=== PATIENT | male | born 1980 | race Caucasian/White ===

== ENCOUNTER 2020-06-08 18:48 | Emergency (ER) | payer BC ==
[2020-06-08] MEDS ORDERED: Diphtheria,Pertussis(Acell),Tetanus Vaccine 0.5 ML Syringe IM ONE (19:24)
[2020-06-08] MEDS ORDERED: Silver Sulfadiazine 1% Crm 400 GM Jar TOP ONE (19:25)
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
== END 2020-06-08 20:05 | disposition home or self-care (01) ==
LOC: SUPCPDRO 18:48 → JD.ED 18:48
DX: T20.27XA Burn of second degree of neck, initial encounter (principal); T20.212A Burn of second degree of left ear [any part, except ear drum], initial encounter; T22.10XA Burn of first degree of shoulder and upper limb, except wrist and hand, unspecified site, initial encounter; Z23 Encounter for immunization; Z88.1 Allergy status to other antibiotic agents; X08.8XXA Exposure to other specified smoke, fire and flames, initial encounter; Y92.89 Other specified places as the place of occurrence of the external cause; Y99.0 Civilian activity done for income or pay
CPT/HCPCS: 16020; 90471; 90715; 99283; A9270; 99282

== ENCOUNTER 2021-02-18 17:05 | Emergency (ER) | payer BC ==
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
== END 2021-02-18 19:32 | disposition home or self-care (01) ==
LOC: JD.ED 17:05
DX: S09.21XA Traumatic rupture of right ear drum, initial encounter (principal); Z88.1 Allergy status to other antibiotic agents; Z79.899 Other long term (current) drug therapy; X58.XXXA Exposure to other specified factors, initial encounter
CPT/HCPCS: 99282; 99283

== ENCOUNTER 2021-02-22 17:41 | Emergency (ER) | payer BC ==
--- NOTE | 2021-02-22 18:12 | EDM.PDOC ---
ED HPI GENERAL MEDICAL PROBLEM - General Chief Complaint: ENT Problem Stated Complaint: EAR PAIN Time Seen by Provider: 02/22/21 18:06 Source of Information: Reports: Patient History Limitations: Reports: No Limitations - History of Present Illness INITIAL COMMENTS - FREE TEXT/NARRATIVE: 40-year-old male presents to the ED for evaluation of inability to equilibrate the pressure in his right ear. 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 He did have his earplugs and at that time in a hot piece of slag fell directly into his right ear up against his eardrum on February 13. Examination 2 days ago revealed martinez with hyperemia to the center of the eardrum and 2 areas at 9:00 and 3:00 adjacent to the middle of the eardrum that looked like superficial martinez with serous drainage behind them. I could not tell if there was a true perforation of the eardrum. I placed the patient on Ciprodex optic drops 2 drops to the right ear twice daily. He was advised to make an appointment with either Dr. Layne or Dr. Murray ear nose and throat surgeon in [place] for follow-up. Today he feels that he cannot equilibrate the pressure in his ear and the muffled pressure in his ear is driving him crazy. He states the ear is not that painful anymore. Onset: Gradual Onset Date: 02/13/21 (Right ear has become progressively more muffled for the last 9 days.) Duration: Day(s):, Getting Worse Location: Reports: Face, Other (Right ear has muffled hearing and unable to equilibrate the pressure in his eustachian tube.) Quality: Reports: Ache (Right ear discomfort), Pressure, Other Severity: Moderate (Fullness feeling in his right ear without a "ability to equilibrate the pressure in the eustachian tube.) Improves with: Reports: None Worsens with: Reports: Other Context: Denies: Activity (Up and down hills when he is driving makes it worse.), Exercise, Lifting, Sick Contact, Trauma, Other Associated Symptoms: Reports: No Other Symptoms Treatments 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: Reports: Other (see below) (None.) Right Ear Pain Score (Numeric/FACES): 2 - Related Data Allergies Allergy/AdvReac Type Severity Reaction Status Date / Time bacitracin Allergy Severe Rash Verified 02/22/21 18:09 Home Meds: Home Meds Cholecalciferol (Vitamin D3) [Vitamin D3] 5,000 unit PO DAILY 02/18/21 [History] Ciprofloxacin HCl/Dexameth [Ciproflox-Dexameth Otic Susp] 7.5 ml OT BID #1 bottle 02/18/21 [Rx] Fexofenadine [Sarah] 30 mg PO DAILY 02/18/21 [History] Meloxicam 15 mg PO DAILY 02/18/21 [History] [place]-3/DHA/Epa/Fish Oil [[place] 3 500 Softgel] 1 each PO DAILY 02/18/21 [History] Cefdinir [Omnicef] 300 mg PO BID #16 cap 02/22/21 [Rx] Loratadine/Pseudoephedrine [Claritin-D 24 Hour Tablet] 1 each PO DAILY #5 tab.er.24h 02/22/21 [Rx] Past Medical History Musculoskeletal History: Reports: Back Pain, Chronic Other Musculoskeletal History: low back surgery - Past Surgical History Neurological Surgical History: Reports: Lumbar Spine Social & Family History - Caffeine Use Caffeine Use: Reports: Coffee - Living Situation & Occupation Living situation: Reports: Occupation: Employed ED ROS ENT - Review of Systems Review Of Systems: See Below Constitutional: Denies: Fever, Chills, Malaise, Weakness, Fatigue, Decreased Appetite, Weight Loss HEENT: Reports: Hearing Loss (Pulled hearing right ear), Rhinitis, Sinus Problem Respiratory: Reports: No Symptoms Cardiovascular: Reports: No Symptoms Endocrine: Reports: No Symptoms GI/Abdominal: Reports: No Symptoms : Reports: No Symptoms Musculoskeletal: Reports: No Symptoms Skin: Reports: No Symptoms, Other Psychiatric: Reports: No Symptoms Hematologic/Lymphatic: Reports: No Symptoms ED EXAM, ENT - Physical Exam Exam: See Below Exam Limited By: No Limitations General Appearance: Alert, WD/WN, No Apparent Distress, Other (Temperature is 36.5 degrees with heart rate of 76 and sinus respiratory is 18 with O2 sats of 97% room air BP is 141/88) Ears: Other (Lamination of the right eardrum shows that the previous hyperemia that I recognized in the middle of the eardrum is now an inflamed red area that looks like it wants to start bleeding. The area is adjacent to the middle of the tympanic membrane revea more of a serous fluid almost vesicle formation ) Nose: Nasal Swelling (His nasal turbinates the particular superior middle turbinates are almost kissing in the midline and he has evidence of chronic allergic rhinitis. This is partially why he is not able to equilibrate his eustachian tubes.) Mouth/Throat: Normal Inspection, Normal Gums, Normal Lips, Normal Oropharynx, Normal Teeth Course - Vital Signs Last Recorded V/S: Last Vital Signs Temp 36.5 C 02/22/21 18:04 Pulse 76 02/22/21 18:04 Resp 18 02/22/21 18:04 BP 141/88 H 02/22/21 18:04 Pulse Ox 97 02/22/21 18:04 - Radiology Interpretation Free Text/Narrative:: 40-year-old male presents to the ED primarily because of muffled hearing in his right ear and inability to do equilibrate the eustachian tube pressure in the middle ear cavity. 9 days ago he got hot slag in his right ear from welding. Landed directly on his tympanic membrane and made him very vertiginous for period of time. I seen him a few days ago and recognized martinez to the tympanic membrane with some vesicles at the 9:00 and 3:00 positions and burn primarily to the middle of the tympanic membrane with marked hyperemia. I cannot visualize through the tympanic membrane into the middle ear cavity. I placed him on Ciprodex optic drops 2 drops to the right ear twice daily. He states the muffled ear and inability to equilibrate the pressure is driving him crazy. On examination today he has more of a redness scab formation in the middle of the tympanic membrane that looks like it is getting ready to bleed. The lesions adjacent to the middle eardrum at 3:00 to 9:00 show more vesicle formation and possible pustular formation. I still cannot see into the middle ear cavity. His nose reveals marked swelling of the middle and superior turbinates bilaterally with a nearly kissing each side. This is highly responsible for his inability to equilibrate ear pressure. Plan I am going to place him on Claritin-D 24-hour release once daily for 5 days. Advised to lemon picker some Nasacort or Flonase nasal spray and use 2 squirts to each side of the nose once daily at bedtime. I also placed him on antibiotic Omnicef 300 mg twice daily for the next 8 days to clear up any middle ear infection that I cannot vis ualize. He has an appointment to see ear nose and throat surgeon Dr. Layne in clinic next week on February 26. Departure - Departure Time of Disposition: 18:07 Disposition: Home, Self-Care 01 Condition: Fair Clinical Impression: Eustachian tube dysfunction Qualifiers: Laterality: right Qualified Code(s): H69.81 - Other specified disorders of Eustachian tube, right ear - Discharge Information *PRESCRIPTION DRUG MONITORING PROGRAM REVIEWED*: Not Applicable *COPY OF PRESCRIPTION DRUG MONITORING REPORT IN PATIENT MARLEE: Not Applicable Prescriptions: Loratadine/Pseudoephedrine [Claritin-D 24 Hour Tablet] 1 each PO DAILY #5 tab.er.24h Cefdinir [Omnicef] 300 mg PO BID #16 cap Instructions: Eustachian Tube Dysfunction Referrals: Mayuri Díaz PA-C [Primary Care Provider] - Forms: ED Department Discharge Additional Instructions: Evaluation in the emergency room today in regards to injury to your right tympanic membrane or eardrum that occurred from hot piece of his slag that got into your ear 9 days ago. It caused martinez to the eardrum. Overall the eardrum does look slightly better than it did when I seen it a few days ago. There appears to be blisterlike formation on the eardrum at the 3 o'clock position. There is more of a red scab that looks like it is ready to bleed in the middle of the eardrum. The fact that she cannot equilibrate the pressure in the middle ear cavity is partially due to significant inflammation of your nose lining which is not along the eustachian tube that drains your middle ear to open appropriately. Treatment is Claritin-D 24-hour release 1 tablet once daily for the next 5 days. We usually take this first thing in the morning. I am going to place you an antibiotic Omnicef 300 mg twice daily for 8 days to clear up any infection that may be going on in the middle ear cavity since I cannot visualize it due to the thickening of your eardrum due to inflammation at this time. Continue the eardrops that we prescribed earlier this week. The other thing that you could try is picking up some Flonase nasal spray or Nasacort nasal spray which is now [id number]. 1 squirt each side of your nose at bedtime and repeat 3 minutes later 1 squirt each side will help open up your nose and help the eustachian tube drain after for 5 days of use. Follow-up with Dr. Jack and ear nose and throat surgeon in [place] next week as planned. Sepsis Event Note (ED) - Focused Exam Vital Signs: Vital Signs Temp Pulse Resp BP Pulse Ox 02/22/21 18:04 36.5 C 76 18 141/88 H 97
== END 2021-02-22 18:25 | disposition home or self-care (01) ==
LOC: JD.ED 17:41
DX: H69.81 Other specified disorders of Eustachian tube, right ear (principal); Z88.1 Allergy status to other antibiotic agents
CPT/HCPCS: 99282; 99283

== ENCOUNTER 2021-04-13 09:27 | Emergency (ER) | payer BC ==
[2021-04-13] MEDS ORDERED: Fluorescein 1 MG Ophth Strip EYEBOTH ONE (10:28)
[2021-04-13] MEDS ORDERED: Proparacaine 0.5% Ophth Soln 15 ML Bottle EYEBOTH ONE (10:30)
--- NOTE | 2021-04-13 11:39 | EDM.PDOC ---
ED HPI GENERAL MEDICAL PROBLEM - General Chief Complaint: Eye Problems Stated Complaint: EYE REDNESS Time Seen by Provider: 04/13/21 09:52 Source of Information: Reports: Patient History Limitations: Reports: No Limitations - History of Present Illness INITIAL COMMENTS - FREE TEXT/NARRATIVE: The patient presents with eye irritation. This has been going on since . He got some metal in his left eye and saw his supplier specialist. He removed the metal. He put a contact in and the contact went up into his eye. He returned and had the contact removed and some rust was removed. He was put on neomycin, polymycin B drops. The left eye has redness, swelling irritation, and now some drainage. Now the right eye is affected. It has erythema some lid edema and drainage. He has blurry vision to the left eye. He has no fever, chills, cough, chest pain, shortness of breath. Onset: Gradual Duration: Day(s): Location: Reports: Other (eyes) Quality: Reports: Other (irritation) Severity: Moderate Improves with: Reports: None Worsens with: Reports: None Associated Symptoms: Reports: No Other Symptoms Bilateral Eye Pain Score (Numeric/FACES): 8 - Related Data Allergies Allergy/AdvReac Type Severity Reaction Status Date / Time bacitracin Allergy Severe Rash Verified 04/13/21 09:51 Home Meds: Home Meds Cholecalciferol (Vitamin D3) [Vitamin D3] 5,000 unit PO DAILY 02/18/21 [History] Ciprofloxacin HCl/Dexameth [Ciproflox-Dexameth Otic Susp] 7.5 ml OT BID #1 bottle 02/18/21 [Rx] Fexofenadine [Sarah] 30 mg PO DAILY 02/18/21 [History] Meloxicam 15 mg PO DAILY 02/18/21 [History] Tropic-3/DHA/Epa/Fish Oil [Tropic 3 500 Softgel] 1 each PO DAILY 02/18/21 [History] Cefdinir [Omnicef] 300 mg PO BID #16 cap 02/22/21 [Rx] Loratadine/Pseudoephedrine [Claritin-D 24 Hour Tablet] 1 each PO DAILY #5 tab.er.24h 02/22/21 [Rx] Moxifloxacin HCl [Vigamox] 1 drop EYEBOTH Q4H #1 bottle 04/13/21 [Rx] Past Medical History - Past Health History Medical/Surgical History: Denies Medical/Surgical History Musculoskeletal History: Reports: Back Pain, Chronic Other Musculoskeletal History: low back surgery - Past Surgical History Neurological Surgical History: Reports: Lumbar Spine Social & Family History - Tobacco Use Tobacco Use Status *Q: Never Tobacco User - Caffeine Use Caffeine Use: Reports: Coffee - Recreational Drug Use Recreational Drug Use: No - Living Situation & Occupation Living situation: Reports: Occupation: Employed ED ROS GENERAL - Review of Systems Review Of Systems: See Below Constitutional: Reports: No Symptoms HEENT: Reports: Eye Pain (irritation and drainage) Respiratory: Reports: No Symptoms Cardiovascular: Reports: No Symptoms Endocrine: Reports: No Symptoms GI/Abdominal: Reports: No Symptoms : Reports: No Symptoms Musculoskeletal: Reports: No Symptoms ED EXAM GENERAL W FULL EYE - Physical Exam Exam: See Below Exam Limited By: No Limitations General Appearance: Alert, No Apparent Distress Eye Exam: Bilateral Eye: Conjunctival Injection, EOMI, PERRL Visual Acuity (R) 20/: 25 Visual Acuity (L) 20/: 50 With Correction: No Eyelids: Right: Stye, Bilateral: Edema, Erythema Conjunctiva & Sclera: Bilateral: Injected Cornea Exam: Bilateral: Normal Appearance Extraocular Movements: Bilateral: Intact Pupillary Reaction: Bilateral: Brisk Anterior Chamber: Bilateral: Normal Appearance Respiratory/Chest: No Respiratory Distress Course - Vital Signs Last Recorded V/S: Last Vital Signs Temp 97.5 F 04/13/21 09:51 Pulse 69 04/13/21 09:51 Resp 16 04/13/21 09:51 BP 147/99 H 04/13/21 09:51 Pulse Ox 93 L 04/13/21 09:51 - Orders/Labs/Meds Meds: Medications Discontinued Medications Generic Name Dose Route Start Last Admin Trade Name Freq PRN Reason Stop Dose Admin Fluorescein Sodium 1 mg 04/13/21 10:28 04/13/21 10:34 Fluorescein 1 Mg Ophth Strip EYEBOTH 04/13/21 10:29 1 mg ONETIME ONE Administration Proparacaine HCl 1 ml 04/13/21 10:30 04/13/21 10:34 Proparacaine 0.5% Ophth Soln 15 Ml Bottle EYEBOTH 04/13/21 10:31 1 drop ONETIME ONE Administration - Re-Assessments/Exams Free Text/Narrative Re-Assessment/Exam: 04/13/21 11:41 I have called the supplier specialist at [facility]. 04/13/21 11:[address] [facility] and talked with Dr Espitia with [facility]. He t hought this may be an infection or allergic reaction. He wanted him to stop the polymycin and start Vigamox and someone in his clinic can see him Thursday. Departure - Departure Time of Disposition: 12:00 Disposition: Home, Self-Care 01 Condition: Good Clinical Impression: Conjunctivitis Qualifiers: Conjunctivitis type: unspecified Laterality: bilateral Qualified Code(s): H10.9 - Unspecified conjunctivitis - Discharge Information *PRESCRIPTION DRUG MONITORING PROGRAM REVIEWED*: Not Applicable *COPY OF PRESCRIPTION DRUG MONITORING REPORT IN PATIENT MARLEE: Not Applicable Prescriptions: Moxifloxacin HCl [Vigamox] 1 drop EYEBOTH Q4H #1 bottle Referrals: Mayuri Díaz PA-C [Primary Care Provider] - Forms: ED Department Discharge Additional Instructions: Stop the current drops you are taking. Take the Vigamox 1 drop 4 times per day while awake. Call [facility] Thursday for follow up. The number is . Please return if you are worse. Sepsis Event Note (ED) - Evaluation Sepsis Screening Result: No Definite Risk - Focused Exam Vital Signs: Vital Signs Temp Pulse Resp BP Pulse Ox 04/13/21 09:51 97.5 F 69 16 147/99 H 93 L
== END 2021-04-13 12:10 | disposition home or self-care (01) ==
LOC: JD.ED 09:27
DX: H10.9 Unspecified conjunctivitis (principal)
CPT/HCPCS: 99282